=== PATIENT | female | born 1965 | race Caucasian/White ===

== ENCOUNTER 2019-08-01 19:09 | Emergency (ER) | payer OTHER ==
[~2019-08-01] VITALS: Ht 177.8 cm; Wt 90.7 kg
== END 2019-08-01 20:32 | disposition home or self-care (01) ==
LOC: ER 19:09
DX: S93.492A Sprain of other ligament of left ankle, initial encounter (principal); M12.572 Traumatic arthropathy, left ankle and foot; W01.198A Fall on same level from slipping, tripping and stumbling with subsequent striking against other object, initial encounter; Y93.89 Activity, other specified; Y92.814 Boat as the place of occurrence of the external cause; Y99.8 Other external cause status